=== PATIENT | male | born 1970 | race Caucasian/White ===

== ENCOUNTER 2016-11-20 20:32 | Emergency (ER) | payer BC ==
[2016-11-20] MEDS ORDERED: AMOXicillin 250 MG CAP ONE (20:49)
[2016-11-20] MEDS ORDERED: Sulfameth/Trimethoprim DS 800-160mg TAB ONE (20:49)
== END 2016-11-20 20:50 | disposition home or self-care (01) ==
LOC: BURERS 20:32
DX: T63.301A Toxic effect of unspecified spider venom, accidental (unintentional), initial encounter (principal); L08.9 Local infection of the skin and subcutaneous tissue, unspecified; E11.9 Type 2 diabetes mellitus without complications; E78.5 Hyperlipidemia, unspecified; I10 Essential (primary) hypertension
CPT/HCPCS: 99282